=== PATIENT | female | born 1935 | race Two or more races ===

== ENCOUNTER 2019-12-09 10:08 | Emergency (ER) | payer MEDICARE, OTHER, SELFPAY ==
[~2019-12-09] VITALS: Ht 144.8 cm; Wt 81.6 kg
[2019-12-09] MEDS ORDERED: ACETAMINOPHEN 325 MG TAB PO ONE ×2 (10:32→11:00)
[2019-12-09] MEDS ORDERED: cefTRIAXone W LIDOCAINE 1 GM IM IM ONE (11:45)
[2019-12-09] MEDS ORDERED: cefTRIAXone SOD 1,000 MG VL ONE (14:14)
[2019-12-09 14:40] VITALS: BP 138/77
== END 2019-12-09 14:41 | disposition home or self-care (01) ==
LOC: ER 10:08
DX: U07.1 COVID-19 (principal); J18.9 Pneumonia, unspecified organism; R50.9 Fever, unspecified
CPT/HCPCS: 71045; 87635; 96372; 99284; J0696

== ENCOUNTER 2022-08-26 18:48 | Emergency (ER) | payer MEDICARE, OTHER ==
[~2022-08-26] VITALS: Ht 149.9 cm; Wt 81.9 kg
[2022-08-26 20:50] LABS: Basophils # (auto) 0 10 ^3/uL (0-0.2); Basophils % (auto) 0.6 % (0.0-2.0); Eosinophils # (auto) 0.3 10 ^3/uL (0-0.8); Eosinophils % (auto) 5.3 % (0.0-7.0); Hematocrit 38.5 % (36.0-46.0); Hemoglobin 12.8 g/dL (12.2-16.2); Lymphocytes # (auto) 1.6 10 ^3/uL (0.4-5.4); Lymphocytes % (auto) 26.7 % (10.0-50.0); Mean Corpuscular Hemoglobin 30.1 pg (28.0-32.0); Mean Corpuscular Hgb Conc. 33.3 g/dL (32.0-36.0); Mean Corpuscular Volume 90.5 fL (80.0-100.0); Monocytes # (auto) 0.4 10 ^3/uL (0-1.3); Monocytes % (auto) 6.6 % (0.0-12.0); Neutrophils # (auto) 3.6 10 ^3/uL (1.6-8.6); Neutrophils % (auto) 60.8 % (37.0-80.0); Red Blood Cells 4.25 10^6/uL (4.0-5.20); Red Cell Distribution Width 15.6 % (11.8-14.3)
[2022-08-26 21:00] VITALS: BP 104/49
[2022-08-26 21:01] LABS: Albumin 3.4 g/dL (3.4-5.0); Calcium 9.4 mg/dL (8.5-10.1); Potassium 4.4 mmol/L (3.5-5.1)
[2022-08-26 21:05] LABS: BUN/Creatinine Ratio 20.3 (10.0-20.0); Bilirubin, Total 0.5 mg/dL (0.2-1.0); Total Protein 7.1 g/dL (6.4-8.2)
== END 2022-08-26 22:57 | disposition home or self-care (01) ==
LOC: ER 18:48
DX: R51.9 Headache, unspecified (principal); H92.03 Otalgia, bilateral; E78.5 Hyperlipidemia, unspecified; I10 Essential (primary) hypertension; R06.02 Shortness of breath
CPT/HCPCS: 36415; 70450; 71045; 80053; 83880; 84484; 85025; 93005

== ENCOUNTER 2022-11-03 12:23 | Inpatient (IN) | payer MEDICARE, OTHER ==
[~2022-11-03] VITALS: Ht 149.9 cm; Wt 84.8 kg
[2022-11-03 12:59] LABS: Basophils # (auto) 0 10 ^3/uL (0-0.2); Basophils % (auto) 0.6 % (0.0-2.0); Eosinophils # (auto) 0.4 10 ^3/uL (0-0.8); Eosinophils % (auto) 5.6 % (0.0-7.0); Hematocrit 40.5 % (36.0-46.0); Hemoglobin 13.6 g/dL (12.2-16.2); Lymphocytes # (auto) 1.9 10 ^3/uL (0.4-5.4); Lymphocytes % (auto) 28.8 % (10.0-50.0); Mean Corpuscular Hemoglobin 30.1 pg (28.0-32.0); Mean Corpuscular Hgb Conc. 33.5 g/dL (32.0-36.0); Mean Corpuscular Volume 89.9 fL (80.0-100.0); Monocytes # (auto) 0.4 10 ^3/uL (0-1.3); Monocytes % (auto) 5.6 % (0.0-12.0); Neutrophils # (auto) 3.9 10 ^3/uL (1.6-8.6); Neutrophils % (auto) 59.4 % (37.0-80.0); Red Blood Cells 4.51 10^6/uL (4.0-5.20); Red Cell Distribution Width 15.5 % (11.8-14.3); White Blood Cell 6.5 10^3/uL (4.4-10.8)
[2022-11-03 13:26] LABS: Albumin 3.5 g/dL (3.4-5.0); Calcium 9.3 mg/dL (8.5-10.1)
[2022-11-03 13:28] LABS: BUN/Creatinine Ratio 16.4 (10.0-20.0)
[2022-11-03 13:30] LABS: Bilirubin, Total 0.5 mg/dL (0.2-1.0); Total Protein 7.4 g/dL (6.4-8.2)
[2022-11-03 13:45] LABS: Urine Bacteria FEW /hpf (None Seen); Urine Blood Negative /uL (Negative); Urine Specific Gravity 1.008 (1.001-1.035); Urine WBC 2 /hpf (0 - 5)
[2022-11-03] MEDS ORDERED: MORPHINE SULFATE 4 MG/ML SYR/VIAL IM ONE (14:00)
[2022-11-03] MEDS ORDERED: PROCHLORPERAZINE EDISYLATE 5 MG/ML 2ML VIAL IM ONE (14:00)
[2022-11-03] MEDS ORDERED: SODIUM CHLORIDE 0.9% 1,000 ML IV ONE (14:15)
[2022-11-03] MEDS ORDERED: PIPERACILLIN-TAZOB 3.375GM 100 ML IV ONE (14:15)
[2022-11-03] MEDS ORDERED: ROSU10TA64 PO (20:29)
[2022-11-03] MEDS ORDERED: ASPI81CH49 PO (20:29)
[2022-11-03] MEDS ORDERED: HYDR12.59 PO (20:29)
[2022-11-03] MEDS ORDERED: LISI10TA34 PO (20:29)
[2022-11-03] MEDS ORDERED: GABA-1250 PO (20:29)
[2022-11-03] MEDS ORDERED: SERT-206 PO (20:29)
[2022-11-03] MEDS ORDERED: MORPHINE SULFATE INJ 2 MG/ml SYRG IV PRN (20:30)
[2022-11-03] MEDS ORDERED: ACETAMINOPHEN 325 MG TAB PO PRN (20:30)
[2022-11-03] MEDS ORDERED: NITROGLYCERIN 0.4 MG SL TAB SL PRN (20:30)
[2022-11-03] MEDS ORDERED: DOCUSATE SOD 100 MG CAP PO PRN (20:30)
[2022-11-03] MEDS ORDERED: ONDANSETRON HCL 4 MG/2 ML VIAL IV PRN (20:30)
[2022-11-03] MEDS: HYDROcodone-ACET 5/325MG TAB PO PRN (21:05)
[2022-11-04] VITALS (8 sets, daily range): BP systolic 102–126; BP diastolic 46–70
[2022-11-04 06:37] LABS: Albumin 3.2 g/dL (3.4-5.0); Calcium 8.2 mg/dL (8.5-10.1); INR 1.09 (0.9-1.15); Partial Thromboplastin Time 36.9 sec (24.6-33.4); Potassium 3.8 mmol/L (3.5-5.1)
[2022-11-04 06:40] LABS: BUN/Creatinine Ratio 16.7 (10.0-20.0); Bilirubin, Total 0.6 mg/dL (0.2-1.0); Total Protein 6.1 g/dL (6.4-8.2)
[2022-11-04 06:58] LABS: Basophils # (auto) 0 10 ^3/uL (0-0.2); Basophils % (auto) 0.7 % (0.0-2.0); Eosinophils # (auto) 0.4 10 ^3/uL (0-0.8); Eosinophils % (auto) 7.4 % (0.0-7.0); Hematocrit 37.1 % (36.0-46.0); Hemoglobin 12.3 g/dL (12.2-16.2); Lymphocytes # (auto) 1.3 10 ^3/uL (0.4-5.4); Lymphocytes % (auto) 24.4 % (10.0-50.0); Mean Corpuscular Hemoglobin 30.1 pg (28.0-32.0); Mean Corpuscular Volume 91.1 fL (80.0-100.0); Monocytes # (auto) 0.4 10 ^3/uL (0-1.3); Neutrophils # (auto) 3.3 10 ^3/uL (1.6-8.6); Neutrophils % (auto) 60.5 % (37.0-80.0); Nucleated Red Blood Cells % 0.1 %; Red Blood Cells 4.08 10^6/uL (4.0-5.20); Red Cell Distribution Width 15.4 % (11.8-14.3); White Blood Cell 5.4 10^3/uL (4.4-10.8)
[2022-11-04] MEDS: ASPirin-EC 81 mg tab PO SCH (09:41)
[2022-11-04] MEDS: GABAPENTIN 300 MG CAP PO SCH (09:41)
[2022-11-04] MEDS: LISINOPRIL 10 MG TAB PO SCH (09:42)
[2022-11-04] MEDS: SERTRALINE HCL 50 MG TAB PO SCH (09:42)
[2022-11-04] MEDS: ATORVASTATIN 20 MG TAB PO SCH (09:42)
[2022-11-04] MEDS: HCTZ 25 MG TAB PO SCH (09:45)
[2022-11-04] MEDS: HYDROcodone-ACET 5/325MG TAB PO PRN ×2 (10:06→21:06)
[2022-11-04] MEDS ORDERED: DOCUSATE SOD 100 MG CAP PO ONE (10:30)
[2022-11-04] MEDS ORDERED: cefTRIAXone 1GM/50ML D5W 50 ML IV ONE (10:30)
[2022-11-04 16:25] LABS: Urine Bacteria NONE SEEN /hpf (None Seen); Urine Blood Negative /uL (Negative); Urine Specific Gravity 1.013 (1.001-1.035); Urine WBC 1 /hpf (0 - 5)
[2022-11-04] MEDS: DOCUSATE SOD 100 MG CAP PO SCH (21:06)
[2022-11-05] VITALS (7 sets, daily range): BP systolic 102–123; BP diastolic 0–64
[2022-11-05] MEDS: cefTRIAXone 1GM/50ML D5W 50 ML IV SCH (08:50)
[2022-11-05] MEDS: GABAPENTIN 300 MG CAP PO SCH (08:51)
[2022-11-05] MEDS: ASPirin-EC 81 mg tab PO SCH (08:51)
[2022-11-05] MEDS: HYDROcodone-ACET 5/325MG TAB PO PRN (08:51)
[2022-11-05] MEDS: LISINOPRIL 10 MG TAB PO SCH (08:52)
[2022-11-05] MEDS: SERTRALINE HCL 50 MG TAB PO SCH (08:53)
[2022-11-05] MEDS: HCTZ 25 MG TAB PO SCH (08:53)
[2022-11-05] MEDS: ATORVASTATIN 20 MG TAB PO SCH (08:53)
[2022-11-05] MEDS: DOCUSATE SOD 100 MG CAP PO SCH ×2 (08:53→21:13)
[2022-11-05] MEDS ORDERED: ONDANSETRON HCL 4 MG/2 ML VIAL IV PRN (09:30)
[2022-11-05] MEDS ORDERED: PANTOPRAZOLE 40 MG TAB PO ONE (09:30)
[2022-11-05] MEDS: ACETAMINOPHEN 325 MG TAB PO PRN (18:41)
[2022-11-06 05:00] VITALS: BP 129/75
[2022-11-06] MEDS: ACETAMINOPHEN 325 MG TAB PO PRN (07:57)
[2022-11-06] MEDS: DOCUSATE SOD 100 MG CAP PO SCH (07:59)
[2022-11-06] MEDS: GABAPENTIN 300 MG CAP PO SCH (07:59)
[2022-11-06] MEDS: ATORVASTATIN 20 MG TAB PO SCH (07:59)
[2022-11-06 08:00] VITALS: BP 120/64
[2022-11-06] MEDS: ASPirin-EC 81 mg tab PO SCH (08:00)
[2022-11-06] MEDS: SERTRALINE HCL 50 MG TAB PO SCH (08:00)
[2022-11-06] MEDS: HCTZ 25 MG TAB PO SCH (08:00)
[2022-11-06] MEDS: LISINOPRIL 10 MG TAB PO SCH (08:02)
[2022-11-06] MEDS: cefTRIAXone 1GM/50ML D5W 50 ML IV SCH (09:30)
[2022-11-06 09:36] VITALS: BP 120/64
[2022-11-06] MEDS ORDERED: PANT40TA2 PO (09:53)
[2022-11-06 10:10] VITALS: BP 120/64
== END 2022-11-06 11:15 | disposition home or self-care (01) | DRG 530 ==
LOC: ER 12:23 → TELE 20:34 → EEVIPCON 20:34 → TELE-CENTR 21:43
PROVIDERS: ADMIT Nurse Practitioner Family; ATTEND Internal Medicine
DX: C56.9 Malignant neoplasm of unspecified ovary (principal); K76.0 Fatty (change of) liver, not elsewhere classified; E78.5 Hyperlipidemia, unspecified; K21.9 Gastro-esophageal reflux disease without esophagitis; F32.A Depression, unspecified; I10 Essential (primary) hypertension; R32 Unspecified urinary incontinence; K59.00 Constipation, unspecified; Z90.710 Acquired absence of both cervix and uterus
CPT/HCPCS: 36415; 74022; 74176; 76705; 76775; 76856; 80053; 81001; 83690; 84484; 85025; 85610; 85730; 86304; 87086; 93005; 96365; 96372; 96375; G0378; J0696; J2543

== ENCOUNTER 2023-08-29 10:22 | Emergency (ER) | payer MEDICARE, OTHER ==
[~2023-08-29] VITALS: Ht 160 cm; Wt 82.0 kg
[~2023-08-29 10:22] MED LIST: ASPI81CH49 PO; GABA-1250 PO; HYDR12.59 PO; LISI10TA34 PO; PANT40TA2 PO; ROSU10TA64 PO; SERT-206 PO
[2023-08-29] MEDS: cefTRIAXone SOD 1,000 MG VL IM ONE (11:00)
[2023-08-29 12:13] VITALS: BP 125/68; PULSE 86; RESP 20; O2SAT 94
[2023-08-29 13:01] LABS: Urine Bacteria NONE SEEN /hpf (None Seen); Urine Blood Negative /uL (Negative); Urine Clarity Clear (Clear); Urine Protein, UAD Negative (Negative); Urine Specific Gravity 1.006 (1.001-1.035); Urine Urobilinogen Normal (Negative); Urine WBC <1 /hpf (0 - 5)
[2023-08-29 13:06] LABS: Urine Color Straw (Yellow)
[2023-08-29] MEDS ORDERED: CLIN1CAP70 PO (13:32)
[2023-08-29] MEDS ORDERED: AMOX500T3 PO (13:32)
== END 2023-08-29 13:30 | disposition home or self-care (01) ==
LOC: ER 10:22
DX: L03.115 Cellulitis of right lower limb (principal); I10 Essential (primary) hypertension; E78.5 Hyperlipidemia, unspecified; K21.9 Gastro-esophageal reflux disease without esophagitis
CPT/HCPCS: 73700; 81001; 96372; 99285; J0696

== ENCOUNTER 2023-09-11 19:50 | Inpatient (IN) | payer MEDICARE, OTHER ==
[~2023-09-11] VITALS: Ht 162.6 cm; Wt 84.9 kg
[~2023-09-11 19:50] MED LIST changes: +AMOX500T3 PO; +CLIN1CAP70 PO
[2023-09-11 22:26] LABS: Basophils # (auto) 0.1 10 ^3/uL (0-0.2); Basophils % (auto) 0.8 % (0.0-2.0); Eosinophils # (auto) 0.3 10 ^3/uL (0-0.8); Eosinophils % (auto) 4.2 % (0.0-7.0); Hematocrit 35.2 % (36.0-46.0); Hemoglobin 11.4 g/dL (12.2-16.2); Lymphocytes # (auto) 1.7 10 ^3/uL (0.4-5.4); Lymphocytes % (auto) 25.7 % (10.0-50.0); Mean Corpuscular Hemoglobin 29.9 pg (28.0-32.0); Mean Corpuscular Hgb Conc. 32.5 g/dL (32.0-36.0); Monocytes # (auto) 0.5 10 ^3/uL (0-1.3); Monocytes % (auto) 6.9 % (0.0-12.0); Neutrophils # (auto) 4.1 10 ^3/uL (1.6-8.6); Neutrophils % (auto) 62.4 % (37.0-80.0); Red Blood Cells 3.83 10^6/uL (4.0-5.20); White Blood Cell 6.6 10^3/uL (4.4-10.8)
[2023-09-11 22:35] LABS: Chloride 106 mmol/L (98-107); Potassium 4.2 mmol/L (3.5-5.1); Sodium 140 mmol/L (136-145)
[2023-09-11 22:36] LABS: Anion Gap 7 (5-15); Carbon Dioxide 27 mmol/L (20-30)
[2023-09-11 22:41] LABS: BUN/Creatinine Ratio 20.3 (10.0-20.0); Blood Urea Nitrogen 15 mg/dL (9-23); Glucose 118 mg/dL (74-106)
[2023-09-12] VITALS (9 sets, daily range): BP systolic 112–148; BP diastolic 57–71; PULSE 64–83; RESP 17–20; TEMP 97.6–98.5; O2SAT 92–96
[2023-09-12] MEDS ORDERED: VANCOMYCIN PER PHARMACY 0 MG IV SCH (01:45)
[2023-09-12] MEDS ORDERED: ACETAMINOPHEN 325 MG TAB PO PRN (01:45)
[2023-09-12 02:37] LABS: INR 1.09 (0.9-1.15); Partial Thromboplastin Time 34.5 SEC (24.5-34.5); Prothrombin Time 11.4 sec (9.3-11.8)
[2023-09-12] MEDS: cefTRIAXone 1GM/50ML D5W 50 ML IV ONE (02:52)
[2023-09-12] MEDS: VANCOMYCIN 1GM/200ML 200 ML IV ONE (03:06)
[2023-09-12 03:26] LABS: Erythrocyte Sedimentation Rate 22 mm/hr (0-20)
[2023-09-12] MEDS: HYDROcodone-ACET 5/325MG TAB PO PRN (10:05)
[2023-09-12] MEDS: TRIAMTERENE/HCTZ 37.5/25 MG CAP/TAB PO SCH (10:06)
[2023-09-12] MEDS: ENOXAPARIN SOD 40 MG/0.4 ML SYRINGE SC SCH (10:06)
[2023-09-12] MEDS: SERTRALINE HCL 50 MG TAB PO SCH (10:06)
[2023-09-12] MEDS: LISINOPRIL 5 MG TAB PO SCH (10:06)
[2023-09-12] MEDS ORDERED: INFLUENZA QUAD 2023-2024 0.5 ML SYRG IM ONE (10:30)
[2023-09-12] MEDS: VANCOMYCIN 750mg/150ml 150 ML IV SCH (15:31)
[2023-09-12] MEDS: ONDANSETRON HCL 4 MG/2 ML VIAL IV PRN (15:31)
[2023-09-12] MEDS: ACETAMINOPHEN 325 MG TAB PO PRN (22:17)
[2023-09-12] MEDS: ATORVASTATIN 20 MG TAB PO SCH (22:17)
[2023-09-13] VITALS (8 sets, daily range): BP systolic 93–139; BP diastolic 51–70; PULSE 17–77; RESP 18–90; TEMP 97.6–98.8; O2SAT 91–94
[2023-09-13 06:44] LABS: Basophils # (auto) 0 10 ^3/uL (0-0.2); Basophils % (auto) 0.8 % (0.0-2.0); Eosinophils # (auto) 0.3 10 ^3/uL (0-0.8); Eosinophils % (auto) 4.8 % (0.0-7.0); Hematocrit 33.5 % (36.0-46.0); Lymphocytes # (auto) 1.3 10 ^3/uL (0.4-5.4); Mean Corpuscular Hemoglobin 30.3 pg (28.0-32.0); Mean Corpuscular Hgb Conc. 32.9 g/dL (32.0-36.0); Mean Corpuscular Volume 92.2 fL (80.0-100.0); Monocytes # (auto) 0.3 10 ^3/uL (0-1.3); Monocytes % (auto) 6.7 % (0.0-12.0); Neutrophils # (auto) 3.2 10 ^3/uL (1.6-8.6); Neutrophils % (auto) 61.7 % (37.0-80.0); Nucleated Red Blood Cells % 0.1 %; Red Blood Cells 3.64 10^6/uL (4.0-5.20); Red Cell Distribution Width 16.1 % (11.8-14.3); White Blood Cell 5.2 10^3/uL (4.4-10.8)
[2023-09-13 06:58] LABS: Albumin 3.9 g/dL (3.2-4.8); Alkaline Phosphatase 98 U/L (46-116); Anion Gap 4 (5-15); Aspartate Aminotransferase 18 U/L (13-40); BUN/Creatinine Ratio 16.2 (10.0-20.0); Blood Urea Nitrogen 11 mg/dL (9-23); Calcium 9.6 mg/dL (8.5-10.1); Carbon Dioxide 27 mmol/L (20-30); Chloride 105 mmol/L (98-107); Glucose 100 mg/dL (74-106); Potassium 4.6 mmol/L (3.5-5.1); Sodium 136 mmol/L (136-145)
[2023-09-13 06:59] LABS: Bilirubin, Total 0.7 mg/dL (0.2-1.0); Total Protein 6.5 g/dL (5.7-8.2)
[2023-09-13 07:20] LABS: Alanine Aminotransferase 9 U/L (7-40)
[2023-09-13] MEDS: cefTRIAXone 1GM/50ML D5W 50 ML IV SCH (09:26)
[2023-09-13] MEDS ORDERED: LISI20TA56 PO (14:32)
[2023-09-13] MEDS ORDERED: LATA0.0020 EACHEYE (14:37)
[2023-09-13] MEDS ORDERED: ASPI1CHW5 PO (14:37)
[2023-09-13] MEDS ORDERED: DOCU-94 PO (14:37)
[2023-09-13] MEDS ORDERED: TRIA75TA55 PO (14:38)
[2023-09-13] MEDS ORDERED: OMEP-448 PO (14:38)
[2023-09-14] VITALS (7 sets, daily range): BP systolic 117–154; BP diastolic 56–74; PULSE 65–78; RESP 16–21; TEMP 97.2–98.1; O2SAT 91–93
[2023-09-14] MEDS: LIDOCAINE 1% (LOCAL ANESTH.) PF 5ml SDV ID ONE (14:30)
[2023-09-14] MEDS: SODIUM CHLOR 0.9% PF (SALINE LOCK) 10ML VIAL/SYR IV SCH (21:20)
[2023-09-15] VITALS (7 sets, daily range): BP systolic 116–146; BP diastolic 67–88; PULSE 72–85; RESP 16–22; TEMP 97.5–98.2; O2SAT 91–97
[2023-09-15] MEDS: DOCUSATE SOD 100 MG CAP PO PRN (18:44)
[2023-09-16] VITALS (8 sets, daily range): BP systolic 124–148; BP diastolic 61–83; PULSE 20–82; RESP 16–20; TEMP 36.7; O2SAT 92–95
[2023-09-16] MEDS: PANTOPRAZOLE 40 MG TAB PO SCH (11:01)
[2023-09-17] VITALS (7 sets, daily range): BP systolic 95–141; BP diastolic 59–79; PULSE 78–87; RESP 17–20; TEMP 36.7; O2SAT 93–95
[2023-09-17 06:58] LABS: Basophils # (auto) 0 10 ^3/uL (0-0.2); Basophils % (auto) 0.6 % (0.0-2.0); Eosinophils # (auto) 0.1 10 ^3/uL (0-0.8); Eosinophils % (auto) 1.4 % (0.0-7.0); Hematocrit 38.2 % (36.0-46.0); Hemoglobin 12.8 g/dL (12.2-16.2); Lymphocytes # (auto) 1.1 10 ^3/uL (0.4-5.4); Lymphocytes % (auto) 17.5 % (10.0-50.0); Mean Corpuscular Hemoglobin 30.1 pg (28.0-32.0); Mean Corpuscular Hgb Conc. 33.5 g/dL (32.0-36.0); Monocytes # (auto) 0.5 10 ^3/uL (0-1.3); Monocytes % (auto) 8.4 % (0.0-12.0); Neutrophils # (auto) 4.4 10 ^3/uL (1.6-8.6); Neutrophils % (auto) 72.1 % (37.0-80.0); Nucleated Red Blood Cells % 0.2 %; Red Blood Cells 4.24 10^6/uL (4.0-5.20); Red Cell Distribution Width 15.3 % (11.8-14.3); White Blood Cell 6.2 10^3/uL (4.4-10.8)
[2023-09-17 07:13] LABS: Potassium 4.6 mmol/L (3.5-5.1)
[2023-09-17 07:14] LABS: Anion Gap 10 (5-15); Calcium 10.5 mg/dL (8.5-10.1); Carbon Dioxide 21 mmol/L (20-30)
[2023-09-17 07:19] LABS: Blood Urea Nitrogen 13 mg/dL (9-23); Glucose 110 mg/dL (74-106)
[2023-09-17 07:29] LABS: Chloride 87 mmol/L (98-107)
[2023-09-17 07:31] LABS: Sodium 118 mmol/L (136-145)
[2023-09-17] MEDS: SODIUM CHLORIDE 0.9% 1,000 ML IV SCH (08:10)
[2023-09-17 12:39] LABS: Chloride 87 mmol/L (98-107); Potassium 4.9 mmol/L (3.5-5.1)
[2023-09-17 12:40] LABS: Anion Gap 8 (5-15); Calcium 10.5 mg/dL (8.5-10.1); Carbon Dioxide 21 mmol/L (20-30)
[2023-09-17 12:45] LABS: BUN/Creatinine Ratio 19.4 (10.0-20.0); Blood Urea Nitrogen 12 mg/dL (9-23); Glucose 116 mg/dL (74-106)
[2023-09-17 13:01] LABS: Sodium 116 mmol/L (136-145)
[2023-09-17 20:20] LABS: Chloride 89 mmol/L (98-107); Potassium 4.4 mmol/L (3.5-5.1)
[2023-09-17 20:21] LABS: Anion Gap 6 (5-15); Calcium 10.3 mg/dL (8.7-10.4); Carbon Dioxide 21 mmol/L (20-30)
[2023-09-17 20:26] LABS: BUN/Creatinine Ratio 16.7 (10.0-20.0); Blood Urea Nitrogen 12 mg/dL (9-23); Glucose 133 mg/dL (74-106)
[2023-09-17 20:43] LABS: Sodium 116 mmol/L (136-145)
[2023-09-18] VITALS (8 sets, daily range): BP systolic 113–143; BP diastolic 60–70; PULSE 72–78; RESP 18–22; TEMP 97.6–98.1; O2SAT 93–100
[2023-09-18 00:43] LABS: Chloride 89 mmol/L (98-107); Potassium 4.5 mmol/L (3.5-5.1)
[2023-09-18 00:44] LABS: Anion Gap 4 (5-15); Calcium 9.8 mg/dL (8.7-10.4); Carbon Dioxide 23 mmol/L (20-30)
[2023-09-18 00:49] LABS: Glucose 118 mg/dL (74-106)
[2023-09-18 01:30] LABS: BUN/Creatinine Ratio 20.9 (10.0-20.0); Blood Urea Nitrogen 14 mg/dL (9-23)
[2023-09-18 01:31] LABS: Sodium 116 mmol/L (136-145)
[2023-09-18] MEDS: SODIUM CHLORIDE 0.9% 1,000 ML IV SCH (01:45)
[2023-09-18 07:34] LABS: Chloride 90 mmol/L (98-107); Potassium 4.4 mmol/L (3.5-5.1)
[2023-09-18 07:35] LABS: Anion Gap 7 (5-15); Carbon Dioxide 21 mmol/L (20-30)
[2023-09-18 07:36] LABS: Calcium 9.1 mg/dL (8.5-10.1)
[2023-09-18 07:40] LABS: Blood Urea Nitrogen 15 mg/dL (9-23); Glucose 93 mg/dL (74-106)
[2023-09-18 07:44] LABS: Sodium 118 mmol/L (136-145)
[2023-09-18] MEDS: SODIUM CHLORIDE 0.9% 1,000 ML IV ONE (12:45)
[2023-09-18 12:57] LABS: Chloride 90 mmol/L (98-107); Potassium 4.7 mmol/L (3.5-5.1)
[2023-09-18 12:58] LABS: Anion Gap 9 (5-15); Carbon Dioxide 18 mmol/L (20-30)
[2023-09-18 12:59] LABS: Calcium 9.6 mg/dL (8.5-10.1)
[2023-09-18 13:03] LABS: Glucose 106 mg/dL (74-106)
[2023-09-18 13:04] LABS: BUN/Creatinine Ratio 18.8 (10.0-20.0); Blood Urea Nitrogen 12 mg/dL (9-23)
[2023-09-18 13:07] LABS: Sodium 117 mmol/L (136-145)
[2023-09-18 18:19] LABS: Chloride 89 mmol/L (98-107); Potassium 4.3 mmol/L (3.5-5.1)
[2023-09-18 18:20] LABS: Anion Gap 6 (5-15); Carbon Dioxide 21 mmol/L (20-30)
[2023-09-18 18:21] LABS: Calcium 9.2 mg/dL (8.5-10.1)
[2023-09-18 18:25] LABS: BUN/Creatinine Ratio 18.3 (10.0-20.0); Blood Urea Nitrogen 11 mg/dL (9-23); Glucose 128 mg/dL (74-106)
[2023-09-18 18:29] LABS: Sodium 116 mmol/L (136-145)
[2023-09-18 20:13] LABS: COVID19 ANTIGEN SOFIA FIA NEGATIVE (NEGATIVE)
[2023-09-19] VITALS (9 sets, daily range): BP systolic 117–130; BP diastolic 58–67; PULSE 66–76; RESP 17–20; TEMP 97–98.9; O2SAT 90–98
[2023-09-19] MEDS: UREA 15gm PO Powder PKG PO SCH (13:18)
[2023-09-20] VITALS (7 sets, daily range): BP systolic 111–133; BP diastolic 57–72; PULSE 65–83; RESP 14–22; TEMP 97.4–98.7; O2SAT 95–100
[2023-09-20 08:58] LABS: Alanine Aminotransferase 22 U/L (7-40); Albumin 4.2 g/dL (3.2-4.8); Alkaline Phosphatase 102 U/L (46-116); Anion Gap 2 (5-15); Aspartate Aminotransferase 24 U/L (13-40); BUN/Creatinine Ratio 69.4 (10.0-20.0); Bilirubin, Direct 0.3 mg/dL (<0.3); Calcium 9.6 mg/dL (8.5-10.1); Carbon Dioxide 27 mmol/L (20-30); Chloride 88 mmol/L (98-107); Glucose 155 mg/dL (74-106); Potassium 4.5 mmol/L (3.5-5.1)
[2023-09-20 08:59] LABS: Bilirubin, Total 0.6 mg/dL (0.2-1.0); Total Protein 6.8 g/dL (5.7-8.2)
[2023-09-20 09:04] LABS: Blood Urea Nitrogen 43 mg/dL (9-23)
[2023-09-20 09:06] LABS: Sodium 117 mmol/L (136-145)
[2023-09-20 09:56] LABS: Basophils # (auto) 0 10 ^3/uL (0-0.2); Basophils % (auto) 0.7 % (0.0-2.0); Eosinophils # (auto) 0.1 10 ^3/uL (0-0.8); Eosinophils % (auto) 1.7 % (0.0-7.0); Hematocrit 34.6 % (36.0-46.0); Hemoglobin 11.9 g/dL (12.2-16.2); Lymphocytes # (auto) 0.9 10 ^3/uL (0.4-5.4); Lymphocytes % (auto) 18.3 % (10.0-50.0); Mean Corpuscular Hemoglobin 30.9 pg (28.0-32.0); Mean Corpuscular Hgb Conc. 34.5 g/dL (32.0-36.0); Mean Corpuscular Volume 89.5 fL (80.0-100.0); Monocytes # (auto) 0.4 10 ^3/uL (0-1.3); Monocytes % (auto) 7.9 % (0.0-12.0); Neutrophils # (auto) 3.5 10 ^3/uL (1.6-8.6); Neutrophils % (auto) 71.4 % (37.0-80.0); Red Blood Cells 3.87 10^6/uL (4.0-5.20); Red Cell Distribution Width 15.3 % (11.8-14.3); White Blood Cell 4.9 10^3/uL (4.4-10.8)
[2023-09-20] MEDS: UREA 15gm PO Powder PKG PO SCH (10:15)
[2023-09-20] MEDS: MILK OF MAGNESIA 30ML SUSP PO ONE (10:16)
[2023-09-20] MEDS: SODIUM CHL 3% 150 ML IV ONE (11:42)
[2023-09-20 17:58] LABS: Chloride 93 mmol/L (98-107); Potassium 4.5 mmol/L (3.5-5.1); Sodium 122 mmol/L (136-145)
[2023-09-20 17:59] LABS: Anion Gap 3 (5-15); Calcium 9.6 mg/dL (8.7-10.4); Carbon Dioxide 26 mmol/L (20-30)
[2023-09-20 18:04] LABS: BUN/Creatinine Ratio 94.9 (10.0-20.0); Glucose 96 mg/dL (74-106)
[2023-09-20 18:05] LABS: Blood Urea Nitrogen 56 mg/dL (9-23)
[2023-09-21] VITALS (7 sets, daily range): BP systolic 112–138; BP diastolic 54–71; PULSE 68–76; RESP 18–20; TEMP 97.7–98.7; O2SAT 95–100
[2023-09-21 06:46] LABS: Chloride 96 mmol/L (98-107); Potassium 4.3 mmol/L (3.5-5.1); Sodium 123 mmol/L (136-145)
[2023-09-21 06:47] LABS: Anion Gap 1 (5-15); Calcium 9.4 mg/dL (8.7-10.4); Carbon Dioxide 26 mmol/L (20-30)
[2023-09-21 06:52] LABS: Glucose 104 mg/dL (74-106)
[2023-09-21 07:04] LABS: Blood Urea Nitrogen 25 mg/dL (9-23)
[2023-09-22 04:54] VITALS: BP 113/69; PULSE 75; RESP 18; TEMP 98; O2SAT 93
[2023-09-22 06:50] LABS: Anion Gap 4 (5-15); Basophils # (auto) 0.1 10 ^3/uL (0-0.2); Basophils % (auto) 1.1 % (0.0-2.0); Carbon Dioxide 26 mmol/L (20-30); Chloride 96 mmol/L (98-107); Eosinophils # (auto) 0.1 10 ^3/uL (0-0.8); Hematocrit 31.6 % (36.0-46.0); Hemoglobin 10.6 g/dL (12.2-16.2); Lymphocytes # (auto) 0.9 10 ^3/uL (0.4-5.4); Mean Corpuscular Hemoglobin 30.6 pg (28.0-32.0); Mean Corpuscular Hgb Conc. 33.6 g/dL (32.0-36.0); Mean Corpuscular Volume 91.2 fL (80.0-100.0); Monocytes # (auto) 0.5 10 ^3/uL (0-1.3); Monocytes % (auto) 10.2 % (0.0-12.0); Neutrophils # (auto) 3.1 10 ^3/uL (1.6-8.6); Neutrophils % (auto) 65.7 % (37.0-80.0); Nucleated Red Blood Cells % 0.1 %; Potassium 4.8 mmol/L (3.5-5.1); Red Blood Cells 3.47 10^6/uL (4.0-5.20); Red Cell Distribution Width 15.5 % (11.8-14.3); Sodium 126 mmol/L (136-145); White Blood Cell 4.7 10^3/uL (4.4-10.8)
[2023-09-22 06:51] LABS: Calcium 9.4 mg/dL (8.7-10.4)
[2023-09-22 06:56] LABS: BUN/Creatinine Ratio 33.3 (10.0-20.0); Blood Urea Nitrogen 19 mg/dL (9-23); Glucose 100 mg/dL (74-106)
[2023-09-22 08:00] VITALS: PULSE 75; RESP 18; O2SAT 98
[2023-09-22 11:32] VITALS: BP 121/65; PULSE 71; RESP 16; TEMP 36.7; O2SAT 99
== END 2023-09-22 15:40 | disposition home health service (06) | DRG 344 ==
LOC: ER 19:50 → OVERFLOW 09-12 03:07 → CENTRAL 09-12 05:09
PROVIDERS: ADMIT Nurse Practitioner; ATTEND Family Medicine
PROC: 02HV33Z Insertion of Infusion Device into Superior Vena Cava, Percutaneous Approach (ICD-10-PCS; principal; 2023-09-14)
PROC: B548ZZA Ultrasonography of Superior Vena Cava, Guidance (ICD-10-PCS; 2023-09-14)
PROC: 0S9C3ZZ Drainage of Right Knee Joint, Percutaneous Approach (ICD-10-PCS; 2023-09-15)
DX: M00.9 Pyogenic arthritis, unspecified (principal); E87.1 Hypo-osmolality and hyponatremia; J81.1 Chronic pulmonary edema; I10 Essential (primary) hypertension; L03.115 Cellulitis of right lower limb; E78.00 Pure hypercholesterolemia, unspecified; Z20.822 Contact with and (suspected) exposure to COVID-19; E83.52 Hypercalcemia; S80.01XA Contusion of right knee, initial encounter; E11.9 Type 2 diabetes mellitus without complications; S80.221A Blister (nonthermal), right knee, initial encounter; Z96.651 Presence of right artificial knee joint; Z79.4 Long term (current) use of insulin; Z96.653 Presence of artificial knee joint, bilateral; Z91.81 History of falling; W01.0XXA Fall on same level from slipping, tripping and stumbling without subsequent striking against object, initial encounter; Y93.89 Activity, other specified; Y92.098 Other place in other non-institutional residence as the place of occurrence of the external cause; Y99.8 Other external cause status
CPT/HCPCS: 36415; 36569; 71045; 73700; 76881; 76942; 80048; 80053; 80076; 80202; 82565; 83605; 83930; 83935; 84295; 84300; 85025; 85610; 85652; 85730; 86141; 87040; 87205; 87426; 93005; 93971; 96374; 96375; C1729; G0378; J2405

== ENCOUNTER 2023-09-30 05:24 | Inpatient (IN) | payer MEDICARE, MEDICAID ==
[~2023-09-30] VITALS: Ht 152.4 cm; Wt 93.6 kg
[~2023-09-30 05:24] MED LIST changes: +DOCU-94 PO; -HYDR12.59 PO; +LATA0.0020 EACHEYE; -LISI10TA34 PO; +LISI20TA56 PO; +OMEP-448 PO; -PANT40TA2 PO; +TRIA75TA55 PO
[2023-09-30 06:43] VITALS: PULSE 87; RESP 23; O2SAT 90
[2023-09-30 06:49] LABS: Basophils # (auto) 0.1 10 ^3/uL (0-0.2); Basophils % (auto) 1.2 % (0.0-2.0); Eosinophils # (auto) 0.3 10 ^3/uL (0-0.8); Eosinophils % (auto) 5.5 % (0.0-7.0); Hematocrit 35.5 % (36.0-46.0); Hemoglobin 11.8 g/dL (12.2-16.2); Lymphocytes % (auto) 19.9 % (10.0-50.0); Mean Corpuscular Hemoglobin 30.8 pg (28.0-32.0); Mean Corpuscular Hgb Conc. 33.2 g/dL (32.0-36.0); Mean Corpuscular Volume 92.7 fL (80.0-100.0); Monocytes # (auto) 0.3 10 ^3/uL (0-1.3); Monocytes % (auto) 6.4 % (0.0-12.0); Neutrophils # (auto) 3.2 10 ^3/uL (1.6-8.6); Nucleated Red Blood Cells % 0.1 %; Red Blood Cells 3.82 10^6/uL (4.0-5.20); Red Cell Distribution Width 15.7 % (11.8-14.3); White Blood Cell 4.8 10^3/uL (4.4-10.8)
[2023-09-30] MEDS: VANCOMYCIN 1GM/200ML 200 ML IV ONE (06:59)
[2023-09-30] MEDS: cefTRIAXone 1GM/50ML D5W 50 ML IV ONE (06:59)
[2023-09-30 07:06] LABS: INR 1.05 (0.9-1.15); Partial Thromboplastin Time 29.9 SEC (24.5-34.5); Prothrombin Time 11.1 sec (9.3-11.8)
[2023-09-30 07:08] LABS: Alanine Aminotransferase 14 U/L (7-40); Albumin 4.1 g/dL (3.2-4.8); Alkaline Phosphatase 95 U/L (46-116); Anion Gap 5 (5-15); Aspartate Aminotransferase 23 U/L (13-40); BUN/Creatinine Ratio 14.3 (10.0-20.0); Blood Urea Nitrogen 10 mg/dL (9-23); Calcium 10.3 mg/dL (8.5-10.1); Carbon Dioxide 27 mmol/L (20-30); Chloride 105 mmol/L (98-107); Glucose 100 mg/dL (74-106); Potassium 4.3 mmol/L (3.5-5.1); Sodium 137 mmol/L (136-145); Total Protein 6.8 g/dL (5.7-8.2)
[2023-09-30 07:09] LABS: Bilirubin, Total 0.5 mg/dL (0.2-1.0)
[2023-09-30] MEDS ORDERED: MORPHINE SULFATE INJ 2 MG/ml SYRG IV PRN (07:15)
[2023-09-30] MEDS ORDERED: NITROGLYCERIN 0.4 MG SL TAB SL PRN (07:15)
[2023-09-30] MEDS ORDERED: hydrALAZINE HCL 20 MG/ML VL IV PRN (07:15)
[2023-09-30] MEDS ORDERED: ONDANSETRON HCL 4 MG/2 ML VIAL IV PRN (07:15)
[2023-09-30] MEDS ORDERED: VANCOMYCIN PER PHARMACY 0 MG IV SCH (07:15)
[2023-09-30 08:00] VITALS: PULSE 81; RESP 17; O2SAT 99
[2023-09-30 08:14] LABS: Urine Bacteria None Seen /hpf (None Seen)
[2023-09-30 08:20] LABS: Urine Blood Negative /uL (Negative); Urine Clarity Clear (Clear); Urine Protein, UAD Negative (Negative); Urine Specific Gravity 1.008 (1.001-1.035); Urine Urobilinogen Normal (Negative); Urine WBC <1 /hpf (0 - 5)
[2023-09-30 08:22] LABS: Urine Color Yellow (Yellow)
[2023-09-30] MEDS: SODIUM CHLORIDE 0.9% 1,000 ML IV SCH (09:27)
[2023-09-30] MEDS: FAMOTIDINE (10MG/ML) 2ML VL IV SCH (10:14)
[2023-09-30] MEDS: ASPirin 81 mg TAB PO SCH (10:14)
[2023-09-30] MEDS: LISINOPRIL 20 MG TAB PO SCH (10:15)
[2023-09-30 10:18] VITALS: BP 145/80; PULSE 83; RESP 17; TEMP 98; O2SAT 96
[2023-09-30] MEDS: ENOXAPARIN SOD 40 MG/0.4 ML SYRINGE SC SCH (11:57)
[2023-09-30 16:56] VITALS: BP 129/76; PULSE 83; RESP 18; O2SAT 96
[2023-09-30] MEDS: DOCUSATE SOD 100 MG CAP PO PRN (17:26)
[2023-09-30 20:00] VITALS: RESP 18
[2023-09-30 20:49] LABS: Magnesium 2.2 mg/dL (1.6-2.6)
[2023-09-30] MEDS: ATORVASTATIN 20 MG TAB PO SCH (21:08)
[2023-10-01] VITALS (8 sets, daily range): BP systolic 122–139; BP diastolic 68–77; PULSE 78–83; RESP 16–20; TEMP 97.5–98.1; O2SAT 92–100
[2023-10-01] MEDS: HYDROcodone-ACET 5/325MG TAB PO PRN (01:00)
[2023-10-01] MEDS: VANCOMYCIN 1GM/200ML 200 ML IV SCH (06:37)
[2023-10-01 07:22] LABS: Basophils # (auto) 0.1 10 ^3/uL (0-0.2); Basophils % (auto) 0.9 % (0.0-2.0); Eosinophils # (auto) 0.3 10 ^3/uL (0-0.8); Eosinophils % (auto) 5.3 % (0.0-7.0); Hematocrit 34.5 % (36.0-46.0); Hemoglobin 11.5 g/dL (12.2-16.2); Lymphocytes # (auto) 1.2 10 ^3/uL (0.4-5.4); Lymphocytes % (auto) 21.3 % (10.0-50.0); Mean Corpuscular Hemoglobin 31.2 pg (28.0-32.0); Mean Corpuscular Hgb Conc. 33.4 g/dL (32.0-36.0); Mean Corpuscular Volume 93.3 fL (80.0-100.0); Monocytes # (auto) 0.4 10 ^3/uL (0-1.3); Monocytes % (auto) 6.9 % (0.0-12.0); Neutrophils # (auto) 3.6 10 ^3/uL (1.6-8.6); Neutrophils % (auto) 65.6 % (37.0-80.0); White Blood Cell 5.5 10^3/uL (4.4-10.8)
[2023-10-01 07:38] LABS: Alanine Aminotransferase 15 U/L (7-40); Alkaline Phosphatase 87 U/L (46-116); Anion Gap 5 (5-15); BUN/Creatinine Ratio 17.7 (10.0-20.0); Blood Urea Nitrogen 11 mg/dL (9-23); Calcium 9.9 mg/dL (8.5-10.1); Carbon Dioxide 28 mmol/L (20-30); Chloride 105 mmol/L (98-107); Glucose 87 mg/dL (74-106); Potassium 4.6 mmol/L (3.5-5.1); Sodium 138 mmol/L (136-145)
[2023-10-01 07:39] LABS: Albumin 3.9 g/dL (3.2-4.8); Aspartate Aminotransferase 19 U/L (13-40)
[2023-10-01 07:40] LABS: Bilirubin, Total 0.4 mg/dL (0.2-1.0); Total Protein 6.4 g/dL (5.7-8.2)
[2023-10-01] MEDS: cefTRIAXone 1GM/50ML D5W 50 ML IV SCH (08:43)
[2023-10-02] VITALS (8 sets, daily range): BP systolic 136–147; BP diastolic 72–87; PULSE 78–91; RESP 16–18; TEMP 97.6–98.6; O2SAT 94–97
[2023-10-02 06:50] LABS: Basophils # (auto) 0.1 10 ^3/uL (0-0.2); Basophils % (auto) 1.1 % (0.0-2.0); Eosinophils # (auto) 0.2 10 ^3/uL (0-0.8); Eosinophils % (auto) 4.5 % (0.0-7.0); Hematocrit 34.1 % (36.0-46.0); Hemoglobin 11.3 g/dL (12.2-16.2); Lymphocytes # (auto) 1.1 10 ^3/uL (0.4-5.4); Lymphocytes % (auto) 20.1 % (10.0-50.0); Mean Corpuscular Hemoglobin 30.7 pg (28.0-32.0); Mean Corpuscular Hgb Conc. 33.2 g/dL (32.0-36.0); Mean Corpuscular Volume 92.4 fL (80.0-100.0); Monocytes # (auto) 0.3 10 ^3/uL (0-1.3); Monocytes % (auto) 6.3 % (0.0-12.0); Neutrophils # (auto) 3.6 10 ^3/uL (1.6-8.6); Nucleated Red Blood Cells % 0.1 %; Red Blood Cells 3.69 10^6/uL (4.0-5.20); Red Cell Distribution Width 15.4 % (11.8-14.3); White Blood Cell 5.2 10^3/uL (4.4-10.8)
[2023-10-02 07:17] LABS: Erythrocyte Sedimentation Rate 17 mm/hr (0-20)
[2023-10-02 07:18] LABS: Alanine Aminotransferase 13 U/L (7-40); Alkaline Phosphatase 83 U/L (46-116); Anion Gap 6 (5-15); BUN/Creatinine Ratio 12.9 (10.0-20.0); Blood Urea Nitrogen 8 mg/dL (9-23); Calcium 10.3 mg/dL (8.5-10.1); Carbon Dioxide 26 mmol/L (20-30); Chloride 104 mmol/L (98-107); Glucose 93 mg/dL (74-106); Potassium 4.2 mmol/L (3.5-5.1); Sodium 136 mmol/L (136-145)
[2023-10-02 07:19] LABS: CRP High Sensitivity 0.27 mg/dL (<1.0)
[2023-10-02 07:20] LABS: Aspartate Aminotransferase 19 U/L (13-40); Bilirubin, Total 0.6 mg/dL (0.2-1.0); Total Protein 6.5 g/dL (5.7-8.2)
[2023-10-03 01:00] VITALS: BP 136/75; PULSE 84; RESP 17; TEMP 98.2; O2SAT 96
[2023-10-03 05:00] VITALS: BP 138/84; PULSE 86; RESP 16; TEMP 97.6; O2SAT 94
[2023-10-03 06:16] LABS: Basophils # (auto) 0 10 ^3/uL (0-0.2); Basophils % (auto) 0.9 % (0.0-2.0); Eosinophils # (auto) 0.2 10 ^3/uL (0-0.8); Eosinophils % (auto) 4.2 % (0.0-7.0); Hematocrit 34.3 % (36.0-46.0); Hemoglobin 11.5 g/dL (12.2-16.2); Lymphocytes # (auto) 1.1 10 ^3/uL (0.4-5.4); Lymphocytes % (auto) 19.7 % (10.0-50.0); Mean Corpuscular Hemoglobin 30.9 pg (28.0-32.0); Mean Corpuscular Hgb Conc. 33.6 g/dL (32.0-36.0); Mean Corpuscular Volume 91.9 fL (80.0-100.0); Monocytes # (auto) 0.4 10 ^3/uL (0-1.3); Monocytes % (auto) 7.3 % (0.0-12.0); Neutrophils # (auto) 3.7 10 ^3/uL (1.6-8.6); Neutrophils % (auto) 67.9 % (37.0-80.0); Red Blood Cells 3.73 10^6/uL (4.0-5.20); Red Cell Distribution Width 15.6 % (11.8-14.3); White Blood Cell 5.4 10^3/uL (4.4-10.8)
[2023-10-03 06:29] LABS: Alanine Aminotransferase 20 U/L (7-40); Albumin 4.1 g/dL (3.2-4.8); Alkaline Phosphatase 85 U/L (46-116); Anion Gap 6 (5-15); Aspartate Aminotransferase 23 U/L (13-40); BUN/Creatinine Ratio 16.9 (10.0-20.0); Blood Urea Nitrogen 10 mg/dL (9-23); Calcium 10.2 mg/dL (8.5-10.1); Carbon Dioxide 26 mmol/L (20-30); Chloride 106 mmol/L (98-107); Glucose 97 mg/dL (74-106); Potassium 4.2 mmol/L (3.5-5.1); Sodium 138 mmol/L (136-145)
[2023-10-03 06:30] LABS: Bilirubin, Total 0.7 mg/dL (0.2-1.0); Total Protein 6.4 g/dL (5.7-8.2)
[2023-10-03 08:31] VITALS: BP 149/80; PULSE 86; RESP 21; TEMP 97.8; O2SAT 94
[2023-10-03] MEDS: ACETAMINOPHEN 325 MG TAB PO PRN (08:33)
[2023-10-03] MEDS ORDERED: ENOXAPARIN SOD 30 MG/0.3 ML SYRINGE SC SCH (10:00)
[2023-10-03] MEDS: ENOXAPARIN SOD 40 MG/0.4 ML SYRINGE SC SCH (10:00)
[2023-10-03] MEDS: CATHFLO ACTIVASE (ALTEPLASE) 2 MG VIAL IV ONE (10:52)
[2023-10-03] MEDS: NALOXONE HCL 1MG/ML 2ML SYRINGE ONE (11:10)
[2023-10-03 12:31] VITALS: BP 131/77; PULSE 81; RESP 18; TEMP 97.9; O2SAT 94
[2023-10-03] MEDS ORDERED: IBUPROFEN 800 MG TAB PO PRN (12:45)
[2023-10-03 15:49] VITALS: BP 131/77; PULSE 81; RESP 18; TEMP 97.9; O2SAT 94
[2023-10-03 16:59] VITALS: BP 123/67; PULSE 104; RESP 19; TEMP 97.7; O2SAT 95
[2023-10-03] MEDS ORDERED: VANCOMYCIN 1GM/200ML 200 ML IV SCH (23:00)
== END 2023-10-03 17:35 | disposition home health service (06) | DRG 344 ==
LOC: ER 05:24 → EEVIPCON 05:24 → OVERFLOW 07:15 → EAST 10:50
PROVIDERS: ADMIT Internal Medicine Pulmonary Disease; ATTEND Internal Medicine Pulmonary Disease
DX: M00.9 Pyogenic arthritis, unspecified (principal); L03.115 Cellulitis of right lower limb; E78.00 Pure hypercholesterolemia, unspecified; M25.561 Pain in right knee; I10 Essential (primary) hypertension; S80.01XA Contusion of right knee, initial encounter; K21.9 Gastro-esophageal reflux disease without esophagitis; R31.0 Gross hematuria; Z79.899 Other long term (current) drug therapy; Z79.82 Long term (current) use of aspirin; Z96.651 Presence of right artificial knee joint; X58.XXXA Exposure to other specified factors, initial encounter; Y93.89 Activity, other specified; Y92.89 Other specified places as the place of occurrence of the external cause; Y99.8 Other external cause status
CPT/HCPCS: 36415; 71045; 73562; 76775; 80053; 80202; 81001; 83735; 85025; 85610; 85652; 85730; 86141; 87081; 96365; 96375; G0378; J3490

== ENCOUNTER 2023-10-31 12:41 | Emergency (ER) | payer MEDICARE, MEDICAID ==
[2023-10-31 15:53] VITALS: BP 129/49; PULSE 79; RESP 18; TEMP 97.8; O2SAT 93
== END 2023-10-31 16:37 | disposition home or self-care (01) ==
LOC: ER 12:41
DX: Z45.2 Encounter for adjustment and management of vascular access device (principal); K21.9 Gastro-esophageal reflux disease without esophagitis; E78.5 Hyperlipidemia, unspecified; I10 Essential (primary) hypertension

== ENCOUNTER 2024-12-05 20:20 | Emergency (ER) | payer MEDICARE, MEDICAID ==
[~2024-12-05] VITALS: Ht 149.9 cm; Wt 79.2 kg
--- NOTE | 2024-12-05 20:37 | ED.PDOC ---
HPI Comments 89 year old female presents to ER with complaints of laceration to scalp x 1 hour. Patient is present with [id number], reporting that she tripped and fell backwards hitting her left posterior scalp against gravel 1 hour prior to arrival to ER and sustained a laceration to left posterior scalp at that time. Denies use of medications for current symptoms and presents to ER alert and oriented x4, with steady gait, in no distress with a 1 cm laceration noted to left posterior scalp. Patient is up to date on Tdap. Denies n/v, numbness/tingling, dizziness, vision changes, neck pain, confusion or any further symptoms/complaints Chief Complaint: Fall Injury Time Seen by MD: 20:24 Primary Care Provider: unknown Reviewed Notes: Nurses Notes, Medications, Allergies Allergies: Coded Allergies: NO KNOWN ALLERGIES (Unverified , 12/09/19) Home Meds Active Scripts Acetaminophen (Acetaminophen) 500 Mg Tab, 500 MG PO Q4HPRN, #30 TAB 0 Refills Prov:MONICA FORTUNE 12/05/24 Cephalexin Monohydrate (Cephalexin) 500 Mg Cap, 1 CAP PO BID for 7 Days, #14 CAP 0 Refills Prov:MONICA FORTUNE 12/05/24 Clindamycin Hcl (Clindamycin Hcl) 300 Mg Cap, 1 CAP PO BID for 7 Days, #14 CAP Prov:SVETLANA ABRAHAM MD 08/29/23 Amoxicillin Trihydrate (Amoxicillin) 500 Mg Tab, 1 TAB PO BID for 7 Days, #14 TAB Prov:SVETLANA ABRAHAM MD 08/29/23 Reported Medications Omeprazole (Omeprazole Dr) 40 Mg Cap, 1 CAP PO DAILY 09/13/23 Triamterene & Hydrochlorothiaz (Maxzide) 1 Tab Tab, 1 TAB PO QAM [Triamterene/Hydrochlorothiazide 37.5/25 mg] 09/13/23 Docusate Sodium (Colace) 100 Mg Cap, 1 CAP PO DAILY 09/13/23 Latanoprost (Xalatan) 0.005 % Khadijah, 1 DROP EACHEYE QPM 09/13/23 Lisinopril (Lisinopril) 20 Mg Tab, 1 TAB PO DAILY 09/13/23 Sertraline Hcl (Sertraline Hcl) 50 Mg Tab, 1 TAB PO DAILY 11/03/22 Rosuvastatin Calcium (Rosuvastatin Calcium) 10 Mg Tab, 1 TAB PO DAILY 11/03/22 Gabapentin (Gabapentin) 300 Mg Cap, 1 CAP PO BID 11/03/22 Aspirin (Aspirin) 81 Mg Chw, 1 TAB PO DAILY 11/03/22 Information Source: Patient (AND PATIENT'S [id number]) Complexity: Simple Laceration Length (cm): 1 Skin Type: Linear Past Medical History PAST MEDICAL HISTORY: GERD, High Lipids, HTN Surgical History: Hernia Repair, Hysterectomy PAYING TELLER History: No Pertinent PAYING TELLER History Family History Family History: Unknown Social History Smoker: Non-Smoker Alcohol: Denies ETOH Use Drugs: Denies Drug Use Lives In: Home Constitutional: denies: chills, diaphoresis, fatigue, fever, malaise, sweats, weakness, others EENTM: denies: blurred vision, double vision, ear bleeding, ear discharge, ear drainage, ear pain, ear ringing, eye pain, eye redness, hearing loss, mouth pain, mouth swelling, nasal discharge, nose bleeding, nose congestion, nose pain, photophobia, tearing, throat pain, throat swelling, voice changes, others Respiratory: denies: cough, hemoptysis, orthopnea, SOB at rest, shortness of breath, SOB with excertion, stridor, wheezing, others Cardiovascular: denies: chest pain, dizzy spells, diaphoresis, Dyspnea on exertion, edema, irregular heart beat, left arm pain, lightheadedness, palpitations, PND, syncope, others Gastrointestinal: denies: abdomen distended, abdominal pain, blood streaked bowels, constipated, diarrhea, dysphagia, difficulty swallowing, hematemesis, melena, nausea, poor appetite, poor fluid intake, rectal bleeding, rectal pain, vomiting, others Genitourinary: denies: abnormal vagina bleeding, burning, dyspareunia, dysuria, flank pain, frequency, hematuria, incontinence, pain, , vagina discharge, urgency, others Neurological: reports: others (As stated in HPI) Musculoskeletal: denies: back pain, gout, joint pain, joint swelling, muscle pain, muscle stiffness, neck pain, others Integumetry: denies: bruises, change in color, change in hair/nails, dryness, laceration, lesions, lumps, rash, wounds, others Allergic/Immunocompromised: denies: Difficulty Healing, Frequent Infections, Hives, Itching, others Hematologic/Lymphatic: denies: anemia, blood clots, easy bleeding, easy bruising, swollen glands, others Endocrine: denies: excessive hunger, excessive sweating, excessive thirst, excessive urination, flushing, intolerance to cold, intolerance to heat, unexplained weight gain, unexplained weight loss, others Psychiatric: denies: anxiety, bipolar disorder, depression, hopeless, panic disorder, schizophrenia, sleepless, suicidal, others Physical Exam General Appearance: No Apparent Distress HEENT: PERRL/EOMI, Other (1 cm laceration noted to left posterior scalp. Slight TTP/swelling/erythema localized to wound edges. No further skin changes noted) Neck: Full Range of Motion, Non-Tender, Normal Respiratory: Chest Non-Tender, Lungs Clear, No Accessory Muscle Use, No Respiratory Distress, Normal Breath Sounds Cardiovascular: No Murmur, No Gallop, Regular Rate/Rhythm Breast Exam: Deferred Gastrointestinal: Non Tender, No Pulsatile Mass, Soft Genitalia: Deferred Pelvic: Deferred Rectal: Deferred Extremities: Normal capillary refill, Normal range of motion Neurologic: Alert (GCS 15), engineering model maker II-XII nml as Tested, No Motor Deficits, Normal Affect, Normal Mood, No Sensory Deficits Cerebellar Function: Normal Reflexes: Normal Skin: Dry, Warm Lymphatic: No Adenopathy Was a procedure done? Was a procedure done?: Yes Sedation Sedation?: No Laceration Repair : Location Left occipital scalp Length 1 cm Anesthetic: Nothing Laceration Repair Prep: Saline (and peroxide ), by Irrigation (without any signs of foreign body) Laceration Repair: Heppner (1 placed - patient tolerated well without any complication) Informed consent obtained: Yes Risks, benefits, and alternati: Yes Differential diagnosis Generic Laceration: Fracture, Retained Foriegn Body, Neurovascular Injury Differential Diagnosis: Other (Subdural hematoma, subarachnoid hemorrhage) X-Ray, Labs, Meds, VS Vital Signs Date Time Temp Pulse Resp B/P (MAP) Pulse Ox O2 Delivery O2 Flow Rate FiO2 12/05/24 21:01 97.6 76 18 127/76 (93) 96 97.6 PATIENT: MALLORY SANDERSON ACCT: [id number] UNIT: [id number] : 1935 LOC: ER ROOM / BED: / AGE / SEX: 89 / F ADM STATUS: REG ER SERVICE 24 ORDERING PHYSICIAN: MONICA FORTUNE PROCEDURE(s): HWOCT - HEAD WITHOUT CONTRAST REASON: head injury ORDER NUMBER(s): [id number], ACCESSION NUMBER(s): [id number] EXAM: CT HEAD WITHOUT CONTRAST INDICATION: head injury TECHNIQUE: CT of the head without intravenous contrast. Radiation Dose Information: CT Dose: CTDI volume is 54.68 mGy. Dose-length product is 968.34 mGy*cm The dose indicators for CT are the volume Computed Tomography (CT) Dose Index (CTDIvol) and the Dose Length Product (DLP), and are measured in units of mGy and mGy-cm, respectively. These indicators are not patient dose, but values generated from the CT scanner acquisition factors. The report includes radiation exposure data for exposures received during this examination. COMPARISON: CT HEAD WITHOUT CONTRAST on DOS: 08/26/22 FINDINGS: There is no evidence of acute intracranial hemorrhage, extra-axial collection, mass effect, midline shift, herniation or hydrocephalus. The ventricles, sulci and cisterns are age appropriate. The puente-white differentiation is intact. Patchy periventricular and subcortical white matter hypoattenuation is nonspecific but may be related to small vessel ischemic disease. The visualized paranasal sinuses and mastoid air cells are clear. The surrounding soft tissues and osseous structures are unremarkable. IMPRESSION: 1. No acute intracranial abnormality. ATED BY: CHRIS SALGADO Jr., DO DICTATED DATE/TIME: 12/05/242052 SIGNED BY: CHRIS SALGADO Jr., SIGNED DATE/TIME: 12/05/242052 CC: CT head without contrast reviewed Wound cleaning performed at bedside Wound care/cleaning discussed and advised Advised to follow up in seven days for removal of staple Advised to follow up with PCP in 1-2 days Patient and patient's [id number] verbalized understanding and agreeable with current plan of care Advised to return to ER immediately if symptoms worsen Images Reviewed?: Images reviewed and evaluated by me Time of 1ST Reevaluation: 20:32 Reevaluation 1ST: N/A Patient Education/Counseling: Diagnosis, Treatment, Prognosis, Need For Follow Up Family Education/Counseling: Diagnosis, Treatment, Prognosis, Need For Follow Up Departure 1 Departure Time of Disposition: 21:10 Impression: Primary Impression: Laceration of scalp Qualified Codes: S01.01XA - Laceration without foreign body of scalp, initial encounter Additional Impression: Head injury Qualified Codes: S09.90XA - Unspecified injury of head, initial encounter Disposition: HOME / SELF CARE / HOMELESS Condition: Stable e-Prescriptions Acetaminophen (Acetaminophen) 500 Mg Tab 500 MG PO Q4HPRN, #30 TAB 0 Refills Prov: MONICA FORTUNE 12/05/24 Cephalexin Monohydrate (Cephalexin) 500 Mg Cap 1 CAP PO BID for 7 Days, #14 CAP 0 Refills Prov: MONICA FORTUNE 12/05/24 Discharged With: Other ([id number]) Critical Care Note Critical Care Time?: No Stability Stability form required: No Heart Score Heart Score: Heart Score Response (Comments) Value History N/A 0 EKG N/A 0 Age N/A 0 Risk Factors N/A 0 Troponin N/A 0 Total 0 MONICA FORTUNE Dec 05, 2024 20:37
--- NOTE | 2024-12-05 20:56 | DVH ---
EXAM: CT HEAD WITHOUT CONTRAST INDICATION: head injury TECHNIQUE: CT of the head without intravenous contrast. Radiation Dose Information: CT Dose: CTDI volume is 54.68 mGy. Dose-length product is 968.34 mGy*cm The dose indicators for CT are the volume Computed Tomography (CT) Dose Index (CTDIvol) and the Dose Length Product (DLP), and are measured in units of mGy and mGy-cm, respectively. These indicators are not patient dose, but values generated from the CT scanner acquisition factors. The report includes radiation exposure data for exposures received during this examination. COMPARISON: CT HEAD WITHOUT CONTRAST on DOS: 08/26/22 FINDINGS: There is no evidence of acute intracranial hemorrhage, extra-axial collection, mass effect, midline s hift, herniation or hydrocephalus. The ventricles, sulci and cisterns are age appropriate. The puente-white differentiation is intact. Patchy periventricular and subcortical white matter hypoattenuation is nonspecific but may be related to small vessel ischemic disease. The visualized paranasal sinuses and mastoid air cells are clear. The surrounding soft tissues and osseous structures are unremarkable. IMPRESSION: 1. No acute intracranial abnormality.
[2024-12-05 21:01] VITALS: BP 127/76; PULSE 76; RESP 18; TEMP 97.6; O2SAT 96
[2024-12-05] MEDS ORDERED: ACET500T58 PO (21:12)
[2024-12-05] MEDS ORDERED: CEPH500C PO (21:12)
== END 2024-12-05 21:27 | disposition home or self-care (01) ==
LOC: ER 20:20
DX: S01.01XA Laceration without foreign body of scalp, initial encounter (principal); I10 Essential (primary) hypertension; E78.5 Hyperlipidemia, unspecified; K21.9 Gastro-esophageal reflux disease without esophagitis; R51.9 Headache, unspecified; Z79.82 Long term (current) use of aspirin; Z79.899 Other long term (current) drug therapy; Z90.710 Acquired absence of both cervix and uterus; Z98.890 Other specified postprocedural states; W01.0XXA Fall on same level from slipping, tripping and stumbling without subsequent striking against object, initial encounter; Y93.89 Activity, other specified; Y92.89 Other specified places as the place of occurrence of the external cause; Y99.8 Other external cause status
CPT/HCPCS: 12001; 70450

== ENCOUNTER 2025-03-27 20:51 | Emergency (ER) | payer MEDICARE, MEDICAID ==
[~2025-03-27] VITALS: Ht 165.1 cm; Wt 82.2 kg
[~2025-03-27 20:51] MED LIST changes: +ACET500T58 PO; +CEPH500C PO
[2025-03-27 21:00] VITALS: TEMP 97.8
[2025-03-27 22:00] VITALS: BP 119/64; PULSE 66; RESP 22; O2SAT 95
--- NOTE | 2025-03-27 22:58 | DVH ---
CLINICAL HISTORY: FALL, HEAD INJURY TECHNIQUE: Helical scanning was performed of the head from the skull base to the vertex. Multiplanar reconstructions were performed. This exam was performed according to our departmental dose optimizat ion program. Up-to-date CT equipment and radiation dose reduction techniques are utilized as appropri ate. CTDI 55 DLP 765 COMPARISON: CT HEAD WITHOUT CONTRAST on DOS: 12/05/24, CT HEAD WITHOUT CONTRAST on DOS: 08/26/22 FINDINGS: There is no evidence for acute intracranial hemorrhage, acute ischemic changes, mass, mass effect, or extra-axial fluid collection. There is no hydrocephalus or midline shift. There is no effacement of the cerebral sulci and basal subarachnoid cisterns. The puente-white matter differentiation is well lynne ntained. The imaged paranasal sinuses are clear. There has been bilateral cataract extraction. IMPRESSION: NO ACUTE INTRACRANIAL ABNORMALITY SEEN.
--- NOTE | 2025-03-28 11:26 | ED.PDOC ---
History of Present Illness HPI Comments 89-year-old female who came to ER for Fall injury. Patient has a ground level fall last night, she tripped on the couch, and the right side of her head hit the cabinet as she fell down. Denies any loss of consciousness or bleeding from the head. Patient currently on aspirin. Patient apparently was laying on the floor for an hour before she was assisted up. Patient was able to ambulate without assistance. Patient also complaining of right hip pain REVIEW OF SYSTEMS: General: No fever, no chills, or fatigue HEENT: No sore throat, no earache, no congestion, no neck pain. Cardiac: No chest pain. No palpitations. Lungs: No shortness of breath, no cough. GI: No nausea, no vomiting, no diarrhea, no constipation, no abdominal pain : No dysuria, frequency, or urgency. No hematuria. Musculoskeletal: (+) right hip joint pain , no joint swelling, no extremity edema. Skin: No rash, no itching. Neuro: (+) headache, no dizziness, no weakness EXAM: General: Awake, alert and oriented. No acute distress. Skin: Skin in warm, dry and intact. Appropriate color for ethnicity. HEENT: The head is normocephalic and atraumatic. Conjunctivae are clear without exudates or hemorrhage. Sclera is non-icteric. EOM are intact. No signs of nystagmus. Eyelids are normal in appearance without swelling or lesions. Oral mucosa is pink and moist Neck: The neck is supple with normal range of motion. No JVD. Cardiac: Heart rate and rhythm are normal. No murmurs, gallops, or rubs are auscultated. Respiratory: No signs of respiratory distress. Lung sounds are clear in all lobes bilaterally without rales, rhonchi, or wheezes. Abdominal: Abdomen is soft, non-tender without distention. Bowel sounds are present and normoactive in all four quadrants. Extremities: Upper and lower extremities are atraumatic in appearance without deformity or edema. Neurological: The patient is awake, alert and oriented to person, place, and time with normal speech. Speech is clear. There is no facial asymmetry. Psychiatric: Appropriate mood and affect. Good judgement and insight Chief Complaint: Fall Injury Time Seen by MD: 21:49 Primary Care Provider: unknown Reviewed Notes: Nurses Notes Allergies: Coded Allergies: NO KNOWN ALLERGIES (Unverified , 12/09/19) Home Meds Active Scripts Acetaminophen (Acetaminophen) 500 Mg Tab, 500 MG PO Q4HPRN, #30 TAB 0 Refills Prov:MONICA FORTUNE 12/05/24 Cephalexin Monohydrate (Cephalexin) 500 Mg Cap, 1 CAP PO BID for 7 Days, #14 CAP 0 Refills Prov:MONICA FORTUNE 12/05/24 Clindamycin Hcl (Clindamycin Hcl) 300 Mg Cap, 1 CAP PO BID for 7 Days, #14 CAP Prov:SVETLANA ABRAHAM MD 08/29/23 Amoxicillin Trihydrate (Amoxicillin) 500 Mg Tab, 1 TAB PO BID for 7 Days, #14 TAB Prov:SVETLANA ABRAHAM MD 08/29/23 Reported Medications Omeprazole (Omeprazole Dr) 40 Mg Cap, 1 CAP PO DAILY 09/13/23 Triamterene & Hydrochlorothiaz (Maxzide) 1 Tab Tab, 1 TAB PO QAM [Triamterene/Hydrochlorothiazide 37.5/25 mg] 09/13/23 Docusate Sodium (Colace) 100 Mg Cap, 1 CAP PO DAILY 09/13/23 Latanoprost (Xalatan) 0.005 % Khadijah, 1 DROP EACHEYE QPM 09/13/23 Lisinopril (Lisinopril) 20 Mg Tab, 1 TAB PO DAILY 09/13/23 Sertraline Hcl (Sertraline Hcl) 50 Mg Tab, 1 TAB PO DAILY 11/03/22 Rosuvastatin Calcium (Rosuvastatin Calcium) 10 Mg Tab, 1 TAB PO DAILY 11/03/22 Gabapentin (Gabapentin) 300 Mg Cap, 1 CAP PO BID 11/03/22 Aspirin (Aspirin) 81 Mg Chw, 1 TAB PO DAILY 11/03/22 Information Source: Patient, Relative Mode of Arrival: Ambulatory Past Medical History PAST MEDICAL HISTORY: GERD, High Lipids, HTN Surgical History: Hernia Repair, Hysterectomy 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 Was a procedure done?: No Differential Dx Considerations may include: Fall injury, head injury, fracture X-Ray, Labs, Meds, VS Vital Signs Date Time Temp Pulse Resp B/P (MAP) Pulse Ox O2 Delivery O2 Flow Rate FiO2 03/27/25 20:55 97.8 73 20 113/75 94 97.8 Time of 1ST Reevaluation: 21:43 Reevaluation 1ST: Unchanged Patient Education/Counseling: Need For Follow Up Family Education/Counseling: No Family Present SEPSIS Sepsis Screen Date sepsis recognized/suspect: Mar 27, 2025 Time Sepsis recognized/suspect: 2057 Recent Procedure: No On Antibiotic Therapy: No Respiratory Rate >20: No Heart Rate >90: No Temp<36 C (96.8 F) or >38.3 C: No SBP <90 or MAP <65 mmHG: No New Acute Mental Status Change: No Is the patient on CPAP, BIPAP,: No Physician Orders Head Without Contrast (03/27/25 21:46) Vital Signs Date Time Temp Pulse Resp B/P (MAP) Pulse Ox O2 Delivery O2 Flow Rate FiO2 03/27/25 20:55 97.8 73 20 113/75 94 97.8 Departure 1 Departure Time of Disposition: 23:10 Impression: Primary Impression: Head injury Disposition: HOME / SELF CARE / HOMELESS Condition: Stable Additional Instructions: INSTRUCCIONES DE ANGELES DE Urgencias Instrucciones: Jayne atentamente todas las instrucciones proporcionadas en ally paqu[place]. Aunque le hayan dado el angeles del Departamento de Emergencias, esto no significa que tenga un "certificado de buena alphonso". [] Hoy no se doty realizado ningn diagnstico definitivo para arias sntomas. Es posible que ests en proceso de desarrollar mecca enfermedad grave. Es por eso que debe regresar al servicio de urgencias sin falta si presenta algn sntoma nuevo o que empeora (especialmente si arias sntomas incluyen dolor en el pecho, dificultad para respirar, dolor abd ominal, fiebre, dolor de gi, confusin, dificultad para bryant o caminar). Tambin es muy importante que consulte a un mdico de atencin primaria dentro de los prximos 3 a 5 werner para realizar un seguimiento. Si no puede conseguir mecca lucio, regrese al servicio de urgencias para mecca nueva evaluacin. Lesin en la gi: Instrucciones de cuidado Descripcin general La mayora de las lesiones en la gi son leves. Los golpes, hayes y raspaduras en la gi y la jorge l suelen cicatrizar jeferson y pueden tratarse igual que las lesiones en otras partes del cuerpo. Aunque es poco frecuente, de vez en cuando surge un problema ms grave despus de llegar a casa. Por eso, conviene estar atento a los sntomas kieran mesfin o dos werner. El seguimiento es fundamental para hernandez tratamiento y seguridad. Asegrese de programar y acudir a todas arias citas, y llame a hernandez mdico si tiene algn probl tabitha. Tambin es recomendable estar al tanto de los resultados de arias pruebas y llevar mecca lista de los medicamentos que marisa. Microfilming Document Preparer puedes cuidarte en casa? Siga las instrucciones de hernandez mdico. El mdico le indicar si necesita que alguien lo vigile de cerca kieran las prximas 24 horas o ms. Tmatelo con calma kieran los prximos werner o ms si no te sientes jeferson. Pregntele a hernandez mdico cundo puede volver a realizar actividades mallory conducir un automvil, andar en bicicleta u operar maquinaria. Cundo debes pedir ayuda? Llame al 911 en cualquier momento que considere que necesita atencin de emergencia. Por ejemplo, llame si: Tienes mecca convulsin. Te desmayaste (perdiste el conocimiento). Ests confundido o no puedes mantenerte despierto. Tienes un dolor de gi que empeora y no desaparece. Tiene nuevos cambios en la visin o mecca pupila (la parte carlyn en el medio del odell) es ms merry que la otra. Tiene dificultad para hablar, problemas de equilibrio o disminucin de la coordinacin. Llame a hernandez mdico ahora o busque atencin mdica inmediata si: Tiene vmitos nuevos o peores. Te sientes menos alerta. Tienes nueva debilidad o entumecimiento en alguna parte de tu cuerpo. Tiene sntomas nuevos, mallory pensamiento confuso o cambios de humor. Preste atencin a los cambios en hernandez alphonso y asegrese de comunicarse con hernandez mdico si: No mejoras mallory esperabas Crditos por lesin en la gi: Instrucciones de cuidado Actualizado al: 3 de diciembre 2023 Autor: Personal de [employer] Junta de revisin clnica Toda la educacin de [employer] es revisada por un equipo que incluye mdicos, enfermeras, profesionales avanzados, dietistas registrados y otros profesionales de la alphonso. Critical Care Note Critical Care Time?: No Stability Stability form required: No Heart Score Heart Score: Heart Score Response (Comments) Value History N/A 0 EKG N/A 0 Age N/A 0 Risk Factors N/A 0 Troponin N/A 0 Total 0 I personally scribed for ALYSSA MADRIGAL MD ([email or web address]) on 03/27/25 at 21:49. Electronically submitted by Ervin Thornton ([email or web address]). ALYSSA MADRIGAL MD Mar 27, 2025 21:49
== END 2025-03-27 23:25 | disposition home or self-care (01) ==
LOC: ER 20:51
DX: S09.8XXA Other specified injuries of head, initial encounter (principal); I10 Essential (primary) hypertension; E78.5 Hyperlipidemia, unspecified; K21.9 Gastro-esophageal reflux disease without esophagitis; Z79.899 Other long term (current) drug therapy; Z98.890 Other specified postprocedural states; Z90.710 Acquired absence of both cervix and uterus; Z79.82 Long term (current) use of aspirin; W01.198A Fall on same level from slipping, tripping and stumbling with subsequent striking against other object, initial encounter; Y93.89 Activity, other specified; Y92.89 Other specified places as the place of occurrence of the external cause; Y99.8 Other external cause status
CPT/HCPCS: 70450